=== PATIENT | male | born 1995 | race Asian ===

== ENCOUNTER 2022-09-25 11:10 | Inpatient (IN) | payer MEDICAID ==
[2022-09-25] VITALS (9 sets, daily range): BP systolic 85–128
[~2022-09-25] VITALS: Ht 167.6 cm; Wt 62.6 kg
[2022-09-25] MEDS ORDERED: NACL 0.9% 2,000 ML IV ONE (11:30)
[2022-09-25 11:54] LABS: BASOPHILS % (AUTO) 0.4 % (0.0-2.0); HEMOGLOBIN 14.7 g/dL (14.0-18.0); LYMPHOCYTES # (AUTO) 0.3 K/uL (1.0-5.5); LYMPHOCYTES % (AUTO) 2.8 % (20.5-51.5); MEAN CORPUSCULAR HEMOGLOBIN 31 pg (27-31); MEAN CORPUSCULAR HGB CONC 32 % (32-36); MEAN CORPUSCULAR VOLUME 96 fL (79.0-98.0); MONOCYTES # (AUTO) 0.6 K/uL (0.0-1.0); MONOCYTES % (AUTO) 4.9 % (1.7-9.3); NEUTROPHILS % (AUTO) 91.9 % (40.0-70.0); PLATELET COUNT (AUTO) 377 K/uL (130-430)
[2022-09-25] MEDS ORDERED: NACL 0.9% 1,000 ML IV ONE ×2 (12:00→14:15)
[2022-09-25 12:14] LABS: CALCIUM 9.6 mg/dL (8.4-11.0); CREATININE 1.97 mg/dL (0.55-1.30)
[2022-09-25 12:15] LABS: ALBUMIN 3.8 g/dL (3.4-4.8); TOTAL BILIRUBIN 0.5 mg/dL (0.0-1.0)
[2022-09-25] MEDS ORDERED: INSULIN REGULAR, HUMAN 100 UNITS in NS 99 ML IV ONE ×2 (13:00)
[2022-09-25] MEDS ORDERED: INSULIN REGULAR, HUMAN 10 UNITS/0.1 ML, 3 ML VIAL IVP ONE (13:00)
[2022-09-25] MEDS ORDERED: DEXTROSE 50% JECT 50 ML DISP.SYRIN IVP PRN (13:45)
[2022-09-25] MEDS ORDERED: ONDANSETRON HCL 4 MG/2 ML VIAL IVP ONE (13:45)
[2022-09-25] MEDS ORDERED: LORazepam 2 MG/ML VIAL IVP ONE (14:45)
[2022-09-25] MEDS: INSULIN REGULAR, HUMAN 100 UNITS in NS 99 ML IV SCH ×6 (17:06→19:05)
[2022-09-25] MEDS ORDERED: ONDANSETRON HCL 4 MG/2 ML VIAL IVP PRN ×2 (20:30→22:15)
[2022-09-25 21:46] LABS: CALCIUM 8.9 mg/dL (8.4-11.0); CREATININE 1.26 mg/dL (0.55-1.30)
[2022-09-25] MEDS ORDERED: NAPH,MB-DB/K PH,MBDB 250 MG TAB PO ONE (22:45)
[2022-09-25] MEDS: KCL 20 mEq in 100 mL (PREMIX) 100 ML IV SCH (22:50)
[2022-09-25] MEDS: D5W 1,000 ML IV SCH (22:50)
[2022-09-26] VITALS (22 sets, daily range): BP systolic 95–117
[2022-09-26] MEDS: KCL 20 mEq in 100 mL (PREMIX) 100 ML IV SCH (00:10)
[2022-09-26] MEDS: D5W 1,000 ML IV SCH ×2 (01:00→08:30)
[2022-09-26 06:16] LABS: BASOPHILS % (AUTO) 0.4 % (0.0-2.0); EOSINOPHILS % (AUTO) 0.1 % (0.0-4.0); HEMATOCRIT 38.7 % (36-54); HEMOGLOBIN 13.7 g/dL (14.0-18.0); LYMPHOCYTES # (AUTO) 0.7 K/uL (1.0-5.5); MEAN CORPUSCULAR HEMOGLOBIN 31 pg (27-31); MEAN CORPUSCULAR HGB CONC 35 % (32-36); MEAN CORPUSCULAR VOLUME 87 fL (79.0-98.0); MONOCYTES # (AUTO) 0.9 K/uL (0.0-1.0); MONOCYTES % (AUTO) 11.2 % (1.7-9.3); NEUTROPHILS # (AUTO) 6.1 K/uL (1.8-7.7); NEUTROPHILS % (AUTO) 79.3 % (40.0-70.0); PLATELET COUNT (AUTO) 247 K/uL (130-430); RED BLOOD CELL COUNT(AUTO) 4.46 MIL/uL (4.2-6.2); RED CELL DISTRIBUTION WIDTH 17.1 % (9.0-15.0); WHITE BLOOD COUNT (AUTO) 7.7 K/uL (4.8-10.8)
[2022-09-26 06:54] LABS: ALBUMIN 3.2 g/dL (3.4-4.8); CALCIUM 8.6 mg/dL (8.4-11.0); CREATININE 1.15 mg/dL (0.55-1.30); PHOSPHORUS 1.4 mg/dL (2.7-4.5); TOTAL BILIRUBIN 0.4 mg/dL (0.0-1.0)
[2022-09-26 07:28] LABS: BILIRUBIN,URINE 2+ (NEGATIVE); BLOOD, URINE 2+ (NEGATIVE); CLARITY/URINE CLEAR (CLEAR); COLOR,URINE YELLOW (YELLOW); GLUCOSE,URINE 3+ (NEGATIVE); KETONES,URINE 3+ (NEGATIVE); LEUKOCYTE ESTERASE ,URINE NEGATIVE (NEGATIVE); NITRITE, URINE NEGATIVE (NEGATIVE); PROTEIN URINE 1+ (NEGATIVE); UROBILINOGEN,URINE 0.2 (0.2-1.0)
[2022-09-26 07:36] LABS: BACTERIA,URINE None Seen /HPF (None Seen); MUCUS,URINE None Seen /LPF (None Seen); WBC,URINE 0-3 /HPF (0-3)
[2022-09-26] MEDS ORDERED: K PHOS 30 MM in NS 250 ML IV ONE (09:30)
[2022-09-26] MEDS: INSULIN REGULAR, HUMAN 100 UNITS in NS 99 ML IV SCH ×4 (14:53→15:01)
[2022-09-26] MEDS ORDERED: INSULIN NPH 100 UNITS/ML 10 ML VIAL SUBCUT ONE (15:15)
[2022-09-26] MEDS: INSULIN NPH 100 UNITS/ML 10 ML VIAL SUBCUT SCH (20:12)
[2022-09-26] MEDS: INSULIN LISPRO SLIDING SCALE 100 UNITS/ML, 3 ML VIAL (humaLOG) SUBCUT PRN (20:13)
[2022-09-26] MEDS ORDERED: BENZOCAINE/MENTHOL 1 EACH LOZENGE MM PRN (20:30)
[2022-09-27] VITALS (10 sets, daily range): BP systolic 93–105
[2022-09-27] MEDS: INSULIN LISPRO SLIDING SCALE 100 UNITS/ML, 3 ML VIAL (humaLOG) SUBCUT PRN ×3 (06:46→23:01)
[2022-09-27 07:51] LABS: BASOPHILS % (AUTO) 0.5 % (0.0-2.0); EOSINOPHILS # (AUTO) 0.1 K/uL (0.0-0.4); EOSINOPHILS % (AUTO) 1.4 % (0.0-4.0); HEMATOCRIT 33.3 % (36-54); HEMOGLOBIN 11.9 g/dL (14.0-18.0); LYMPHOCYTES # (AUTO) 1.2 K/uL (1.0-5.5); LYMPHOCYTES % (AUTO) 23.1 % (20.5-51.5); MEAN CORPUSCULAR HEMOGLOBIN 31 pg (27-31); MEAN CORPUSCULAR HGB CONC 36 % (32-36); MEAN CORPUSCULAR VOLUME 86 fL (79.0-98.0); MONOCYTES # (AUTO) 0.6 K/uL (0.0-1.0); MONOCYTES % (AUTO) 11.9 % (1.7-9.3); NEUTROPHILS # (AUTO) 3.4 K/uL (1.8-7.7); NEUTROPHILS % (AUTO) 63.1 % (40.0-70.0); PLATELET COUNT (AUTO) 189 K/uL (130-430); RED BLOOD CELL COUNT(AUTO) 3.86 MIL/uL (4.2-6.2); RED CELL DISTRIBUTION WIDTH 17.1 % (9.0-15.0)
[2022-09-27] MEDS: INSULIN NPH 100 UNITS/ML 10 ML VIAL SUBCUT SCH ×2 (08:09→22:51)
[2022-09-27 08:11] LABS: WHITE BLOOD COUNT (AUTO) 5.4 K/uL (4.8-10.8)
[2022-09-27 08:36] LABS: CALCIUM 8.4 mg/dL (8.4-11.0); CREATININE 0.74 mg/dL (0.55-1.30); PHOSPHORUS 2.5 mg/dL (2.7-4.5)
[2022-09-27] MEDS ORDERED: POTASSIUM CHLORIDE 40 MEQ in D5W 250 ML IV ONE (10:00)
[2022-09-27] MEDS: INSULIN Lispro 100 UNITS/ML, 3 ML VIAL (humaLOG) SUBCUT SCH ×2 (11:59→17:11)
[2022-09-27] MEDS ORDERED: K PHOS 15 MM in NS 250 ML IV ONE (14:30)
[2022-09-28 00:24] VITALS: BP_SYST 101
[2022-09-28] MEDS: INSULIN Lispro 100 UNITS/ML, 3 ML VIAL (humaLOG) SUBCUT SCH ×2 (07:13→11:52)
[2022-09-28] MEDS: INSULIN LISPRO SLIDING SCALE 100 UNITS/ML, 3 ML VIAL (humaLOG) SUBCUT PRN ×4 (07:15→21:50)
[2022-09-28 08:10] VITALS: BP_SYST 112
[2022-09-28 08:11] LABS: BASOPHILS % (AUTO) 0.4 % (0.0-2.0); EOSINOPHILS # (AUTO) 0.1 K/uL (0.0-0.4); EOSINOPHILS % (AUTO) 0.9 % (0.0-4.0); HEMOGLOBIN 12.6 g/dL (14.0-18.0); LYMPHOCYTES # (AUTO) 1.4 K/uL (1.0-5.5); LYMPHOCYTES % (AUTO) 25.6 % (20.5-51.5); MEAN CORPUSCULAR HEMOGLOBIN 31 pg (27-31); MEAN CORPUSCULAR HGB CONC 35 % (32-36); MONOCYTES # (AUTO) 0.7 K/uL (0.0-1.0); MONOCYTES % (AUTO) 12.6 % (1.7-9.3); NEUTROPHILS # (AUTO) 3.2 K/uL (1.8-7.7); NEUTROPHILS % (AUTO) 60.5 % (40.0-70.0); PLATELET COUNT (AUTO) 191 K/uL (130-430); RED BLOOD CELL COUNT(AUTO) 4.08 MIL/uL (4.2-6.2); RED CELL DISTRIBUTION WIDTH 17.1 % (9.0-15.0); WHITE BLOOD COUNT (AUTO) 5.3 K/uL (4.8-10.8)
[2022-09-28 08:25] LABS: CALCIUM 8.8 mg/dL (8.4-11.0); CREATININE 0.51 mg/dL (0.55-1.30)
[2022-09-28 08:42] LABS: MEAN CORPUSCULAR VOLUME 88 fL (79.0-98.0)
[2022-09-28] MEDS: INSULIN NPH 100 UNITS/ML 10 ML VIAL SUBCUT SCH ×2 (10:09→21:31)
[2022-09-28] MEDS ORDERED: POTASSIUM CHLORIDE 20 MEQ/PKT PACKET PO ONE (10:45)
[2022-09-28] MEDS ORDERED: KCL 20 mEq in 100 mL (PREMIX) 200 ML IV ONE (11:00)
[2022-09-28 11:49] VITALS: BP_SYST 102
[2022-09-28 16:50] VITALS: BP_SYST 106
[2022-09-28 20:00] VITALS: BP_SYST 105; BP_SYST 109; BP_SYST 159
[2022-09-28] MEDS: POTASSIUM CHLORIDE 20 MEQ/PKT PACKET PO SCH (21:41)
[2022-09-29] VITALS: BP_SYST 105
[2022-09-29] MEDS: INSULIN Lispro 100 UNITS/ML, 3 ML VIAL (humaLOG) SUBCUT SCH ×2 (07:02→12:23)
[2022-09-29] MEDS: INSULIN LISPRO SLIDING SCALE 100 UNITS/ML, 3 ML VIAL (humaLOG) SUBCUT PRN ×2 (07:05→12:26)
[2022-09-29 07:06] LABS: BASOPHILS % (AUTO) 0.7 % (0.0-2.0); EOSINOPHILS # (AUTO) 0.1 K/uL (0.0-0.4); EOSINOPHILS % (AUTO) 1.1 % (0.0-4.0); HEMATOCRIT 34.5 % (36-54); HEMOGLOBIN 12.4 g/dL (14.0-18.0); LYMPHOCYTES # (AUTO) 1.6 K/uL (1.0-5.5); LYMPHOCYTES % (AUTO) 25.5 % (20.5-51.5); MEAN CORPUSCULAR HEMOGLOBIN 31 pg (27-31); MEAN CORPUSCULAR HGB CONC 36 % (32-36); MEAN CORPUSCULAR VOLUME 86 fL (79.0-98.0); MONOCYTES # (AUTO) 0.7 K/uL (0.0-1.0); MONOCYTES % (AUTO) 10.7 % (1.7-9.3); PLATELET COUNT (AUTO) 184 K/uL (130-430); RED BLOOD CELL COUNT(AUTO) 4.04 MIL/uL (4.2-6.2); RED CELL DISTRIBUTION WIDTH 16.9 % (9.0-15.0); WHITE BLOOD COUNT (AUTO) 6.4 K/uL (4.8-10.8)
[2022-09-29 07:39] LABS: ALBUMIN 2.5 g/dL (3.4-4.8); CALCIUM 8.7 mg/dL (8.4-11.0); CREATININE 0.48 mg/dL (0.55-1.30); TOTAL BILIRUBIN 0.3 mg/dL (0.0-1.0)
[2022-09-29 08:00] VITALS: BP_SYST 107
[2022-09-29] MEDS ORDERED: POTASSIUM CHLORIDE 20 MEQ/PKT PACKET PO ONE (09:00)
[2022-09-29] MEDS: POTASSIUM CHLORIDE 20 MEQ/PKT PACKET PO SCH (09:42)
[2022-09-29] MEDS: INSULIN NPH 100 UNITS/ML 10 ML VIAL SUBCUT SCH (09:45)
[2022-09-29] MEDS ORDERED: POTA-178 PO (10:30)
[2022-09-29] MEDS ORDERED: NPH,100I SQ (10:30)
[2022-09-29] MEDS ORDERED: INSU100I28 SQ (10:30)
[2022-09-29] MEDS ORDERED: DOXY100T2 PO (10:31)
[2022-09-29 11:23] VITALS: BP_SYST 97
== END 2022-09-29 13:50 | disposition home or self-care (01) | DRG 420 ==
LOC: SED 11:10 → SIC 14:20 → SMU 09-27 09:24 → STU 09-27 13:06 → SMU 09-28 23:57
PROVIDERS: ADMIT Preventive Medicine Preventive Medicine/Occupational Environmental Medicine; ATTEND Preventive Medicine Preventive Medicine/Occupational Environmental Medicine
DX: E11.10 Type 2 diabetes mellitus with ketoacidosis without coma (principal); N17.0 Acute kidney failure with tubular necrosis; G93.41 Metabolic encephalopathy; R65.10 Systemic inflammatory response syndrome (SIRS) of non-infectious origin without acute organ dysfunction; E83.39 Other disorders of phosphorus metabolism; E83.41 Hypermagnesemia; L02.411 Cutaneous abscess of right axilla; E86.0 Dehydration; D64.9 Anemia, unspecified; D72.829 Elevated white blood cell count, unspecified; I88.9 Nonspecific lymphadenitis, unspecified; Z20.822 Contact with and (suspected) exposure to COVID-19; E87.5 Hyperkalemia; L02.412 Cutaneous abscess of left axilla; E87.6 Hypokalemia; Z83.3 Family history of diabetes mellitus; Z79.4 Long term (current) use of insulin
CPT/HCPCS: 36415; 36600; 71045; 80048; 80053; 81000; 82009; 82803-TC; 82962; 83735; 84100; 85025; 87040; 87081; 87086; 93005; 94760; 96365; 96375; 99291; 99292; G0378; J1815; J2060; J2405; J3480; J7050; J7060